=== PATIENT | female | born 1980 | race Caucasian/White ===

== ENCOUNTER 2017-02-12 11:23 | Emergency (ER) | payer MEDICAID ==
[~2017-02-12] VITALS: Ht 162.6 cm; Wt 85.0 kg
[~2017-02-12 11:23] MED LIST: ALBU8.5H3 INH; HYDR-3498 PO; IBUP-1542 PO; PRED20TA PO
[2017-02-12 11:32] VITALS: Ht 162.6 cm; Wt 85.0 kg
[2017-02-12] MEDS ORDERED: KETOROLAC 30 MG INJ IM STA (12:13)
--- NOTE | 2017-02-12 12:36 | ERD ---
ER Documentation Chief Complaint Date/Time DATE: 02/12/17 TIME: 12:33 Chief Complaint Complains of pain to left side and neck after a slip and fall HPI Patient is a 37-year-old female here with daughter who is serving as cardiac specialist who presents to the ED with neck and shoulder and side pain after sustaining an injury today. About an hour ago patient was at a office where she slipped on the wet ground. She states that she fell on her side. She denies hitting her head or passing out or blacking out or losing consciousness. She remembers having that happen. She denies headache or dizziness. Denies chest pain or shortness of breath or difficulty breathing. States that the pain is local her left shoulder and left side of her neck she is able to move her neck however she does have pain with palpation to the left side. Denies numbness or tingling. Has difficulty walking. Denies abdominal pain, nausea, vomiting or diarrhea. ROS All systems reviewed and are negative except as per history of present illness. Medications Home Meds Active Scripts Naproxen* (Naprosyn*) 500 Mg Tablet, 500 MG PO BID Y for PAIN AND/OR INFLAMMATION, #30 TAB Prov:LISA SKINNER PA-C 02/12/17 Ibuprofen* (Motrin*) 600 Mg Tab, 600 MG PO Q6H Y for PAIN AND OR ELEVATED TEMP, #30 TAB Prov:OLGA LIDIA DODD MD 05/06/16 Ibuprofen* (Motrin*) 600 Mg Tab, 600 MG PO Q8 for PAIN, #30 TAB Prov:KARI WHITLOCK MD 10/08/15 Prednisone* (Prednisone*) 20 Mg Tab, 40 MG PO DAILY for 4 Days, TAB Prov:KARI WHITLOCK MD 10/08/15 Albuterol Sulfate* (Proair HFA*) 8.5 Gm Hfa.aer.ad, 2 PUFF INH Q6H Y for COUGH, #1 INHALER Prov:KARI WHITLOCK MD 10/08/15 Hydrocodone Bit-Acetaminophen* ([place]*) 5-325 Mg Tab, 1 TAB PO Q6 Y for PAIN, # 20 TAB Prov:BILLY FERRIS 08/22/15 Allergies Allergies: Coded Allergies: No Known Allergy (Verified , 10/08/15) PMhx/Soc History of Surgery: Yes (cholecystectomy) Anesthesia Reaction: No Hx Neurological Disorder: No Hx Respiratory Disorders: No Hx Cardiac Disorders: No Hx Psychiatric Problems: No Hx Miscellaneous Medical Probl: No Hx Alcohol Use: No Hx Substance Use: No Hx Tobacco Use: No Smoking Status: Never smoker FmHx Family History: No coronary disease, No diabetes, No other Physical Exam Vitals Vital Signs Date Time Temp Pulse Resp B/P Pulse Ox O2 Delivery O2 Flow Rate FiO2 02/12/17 11:32 98.6 87 20 177/89 98 Physical Exam GENERAL: Well-developed, well-nourished female. Appears in no acute distress. NECK: Supple. No lymphadenopathy or thyromegaly. No meningismus. negative kernig. negative brudinski. LUNG: Clear to auscultation bilaterally. No rhonchi, wheezing, rales or coarse breath sounds. HEART: Regular rate and rhythm. No murmurs, rubs or gallops. Extremities: Equal pulses bilaterally. No peripheral clubbing, cyanosis or edema. No unilateral leg swelling. Tenderness to the left anterior and posterior shoulder with no step-offs or deformities. Pain with full extension and flexion. Slight tenderness to the left elbow. No step-offs or deformities. No spinal tenderness. No step-offs or deformities. Tenderness to the left neck. Tenderness to the left hip with no step-offs or deformities. No open wounds or lacerations. NEUROLOGIC: Alert and oriented. Moving all four extremities. 5/5 strength in all extremities. Normal speech. Steady gait. SKIN: Normal color. Warm and dry. No rashes or lesions. Capillary refill < 2 seconds Results 24 hrs Current Medications Medications (Trade) Dose Ordered Sig/Joleen Route PRN Reason Start Time Stop Time Status Last Admin Dose Admin Ketorolac Tromethamine (Toradol) 30 mg ONCE STAT IM 02/12/17 12:13 02/12/17 12:14 DC 02/12/17 12:18 Procedures/MDM ER COURSE: I kept the patient and/or family informed of laboratory and diagnostic imaging results throughout the emergency room course. IMAGING STUDIES [place] [id number] Radiology Main Line: [phone] DIAGNOSTIC IMAGING REPORT Patient: LISSY JONES : 1980 Age: 37 Sex: F MR #: [id number] DOS: 02/12/17 1213 Ordering MD: LISA SKINNER PA-C Location: [facility] Room/Bed: PROCEDURE: XR cervical spine CLINICAL INDICATION: Pain status post fall TECHNIQUE: 3 standard radiographs were obtained of the cervical spine. COMPARISON: None FINDINGS: Alignment: is normal without subluxation. The atlantoaxial relationship appears normal Disk spaces: are well maintained Osseous structures : appear intact with no fracture or destructive process identified. there is no significant spurring. Soft tissues: are unremarkable. IMPRESSION: Unremarkable cervical spine study Physician Shubham Date Time Electronically viewed and signed by Physician Shubham on 02/12/2017 13:51 RH/ CC: LISA SKINNER PA-C [place] [id number] Radiology Main Line: [phone] DIAGNOSTIC IMAGING REPORT Patient: LISSY JONES : 1980 Age: 37 Sex: F MR #: [id number] DOS: 02/12/17 1213 Ordering MD: LISA SKINNER PA-C Location: [facility] Room/Bed: PROCEDURE: XR Left Hip CLINICAL INDICATION: Pain TECHNIQUE: AP and frog-leg views were submitted. COMPARISON: None FINDINGS: Osseous structures: appear well mineralized and intact with no fracture or destructive process identified. Joint spaces: The hip joint is well maintained there is no distension of the joint capsule. Soft tissues: An Essure tubal occlusion device is noted. IMPRESSION: Unremarkable left hip. Physician Shubham Date Time Electronically viewed and signed by Physician Shubham on 02/12/2017 13:50 RH/ CC: LISA SKINNER PA-C [place] [id number] Radiology Main Line: [phone] DIAGNOSTIC IMAGING REPORT Patient: LISSY JONES : 1980 Age: 37 Sex: F MR #: [id number] DOS: 02/12/17 1213 Ordering MD: LISA SKINNER PA-C Location: [facility] Room/Bed: PROCEDURE: XR Shoulder. CLINICAL INDICATION: Fall TECHNIQUE: Three views of the left shoulder are available for review. COMPARISON: None available FINDINGS: The humeral head is located. The AC joint is maintained. There is no acute osseous or articular abnormality. No evidence for fracture. The visualized portions of the left lung are clear. . IMPRESSION: 1. Normal left shoulder x-ray series. 2. No acute fracture or dislocation is seen. RPTAT: EE .Dash Swanson MD, MD Date Time Electronically viewed and signed by .Dash Swanson MD, on 02/12/2017 13:49 .d/ CC: LISA SKINNER PA-C [place] [id number] Radiology Main Line: [phone] DIAGNOSTIC IMAGING REPORT Patient: LISSY JONES : 1980 Age: 37 Sex: F MR #: [id number] DOS: 02/12/17 0000 Ordering MD: LISA SKINNER PA-C Location: [facility] Room/Bed: PROCEDURE: XR Chest AP portable CLINICAL INDICATION: Pain status post fall TECHNIQUE: An AP portable radiograph of the chest was submitted. COMPARISON: 10/08/2015 FINDINGS: Support Hardware: None Cardiovascular: The cardiovascular silhouette appears unremarkable. Lung Benitez: The lung benitez appear clear with no nodule, alveolar infiltrate, or interstitial prominence evident. Pleural Spaces: No pneumothorax or pleural effusion is identified. Osseous Structures: The osseous structures appear intact. Soft Tissues: The soft tissues appear unremarkable. IMPRESSION: Stable and unremarkable portable chest. Physician Shubham Date Time Electronically viewed and signed by Daylin Moreland Physician on 02/12/2017 13:52 RH/ CC: LISA SKINNER PA-C MEDICATIONS Toradol. Tolerated well with no adverse reaction. MEDICAL DECISION MAKING: This is a 37-year-old female who presents with pain after sustaining a fall today. Vital signs were reviewed. Patient is afebrile. Patient is not hypoxic. Patient is not toxic or ill-appearing. X-rays read by radiologist is unremarkable for fracture dislocation. Chest x-ray is within normal limits. Patient likely has muscle strain versus sprain versus contusion. I have low suspicion for fracture dislocation. Low suspicion for dislocation, fracture, epidural abscess, herniation, osteomyelitis, meningitis, neurological deficit. Low suspicion for dislocation, fracture, septic joint, compartment syndrome, osteomyelitis, cellulitis, avascular necrosis, neurological injury, vascular injury, tendon laceration. DISCHARGE: At this time, patient is stable for discharge and outpatient management with no new complaints during the ER course. Patient was sent home with [place] and copy of all imaging report. Patient will be discharged home with instructions to recheck for new or worsening symptoms such as fever, nausea, weakness, LOC and to follow up with primary care in the next 1-2 days. Patient was advised to return to the ER for any new or worsening symptoms. Plan was discussed and patient and/or family understands and agrees. Home instructions were given. Departure Diagnosis: Primary Impression: Fall Encounter type: initial encounter Qualified Code: W19.XXXA - Fall, initial encounter Additional Impression: Neck pain Condition: Stable LISA SKINNER PA-C Feb 12, 2017 12:35
--- NOTE | 2017-02-12 13:50 | RADRPT ---
PROCEDURE: XR Shoulder. CLINICAL INDICATION: Fall TECHNIQUE: Three views of the left shoulder are available for review. COMPARISON: None available FINDINGS: The humeral head is located. The AC joint is maintained. There is no acute osseous or articular abn ormality. No evidence for fracture. The visualized portions of the left lung are clear. . IMPRESSION: 1. Normal left shoulder x-ray series. 2. No acute fracture or dislocation is seen. RPTAT: EE .Dash Swanson MD, Date Time Electronically viewed and signed by .Dash Swanson MD, MD on 02/12/2017 13:49 .d/
--- NOTE | 2017-02-12 13:50 | RADRPT ---
PROCEDURE: XR Left Hip CLINICAL INDICATION: Pain TECHNIQUE: AP and frog-leg views were submitted. COMPARISON: None FINDINGS: Osseous structures: appear well mineralized and intact with no fracture or destructive process iden tified. Joint spaces: The hip joint is well maintained there is no distension of the joint capsule. Soft tissues: An Essure tubal occlusion device is noted. IMPRESSION: Unremarkable left hip. Physician Shubham Date Time Electronically viewed and signed by Daylin Moreland Physician on 02/12/2017 13:50 RH/
--- NOTE | 2017-02-12 13:51 | RADRPT ---
PROCEDURE: XR cervical spine CLINICAL INDICATION: Pain status post fall TECHNIQUE: 3 standard radiographs were obtained of the cervical spine. COMPARISON: None FINDINGS: Alignment: is normal without subluxation. The atlantoaxial relationship appears normal Disk spaces: are well maintained Osseous structures : appear intact with no fracture or destructive process identified. there is no s ignificant spurring. Soft tissues: are unremarkable. IMPRESSION: Unremarkable cervical spine study Physician Shubham Date Time Electronically viewed and signed by Daylin Moreland Physician on 02/12/2017 13:51 RH/
--- NOTE | 2017-02-12 13:52 | RADRPT ---
PROCEDURE: XR Chest AP portable CLINICAL INDICATION: Pain status post fall TECHNIQUE: An AP portable radiograph of the chest was submitted. COMPARISON: 10/08/2015 FINDINGS: Support Hardware: None Cardiovascular: The cardiovascular silhouette appears unremarkable. Lung Noel: The lung noel appear clear with no nodule, alveolar infiltrate, or interstitial promi nence evident. Pleural Spaces: No pneumothorax or pleural effusion is identified. Osseous Structures: The osseous structures appear intact. Soft Tissues: The soft tissues appear unremarkable. IMPRESSION: Stable and unremarkable portable chest. Physician Shubham Date Time Electronically viewed and signed by Daylin Moreland Physician on 02/12/2017 13:52 RH/
[2017-02-12] MEDS ORDERED: NAPR-260 PO (14:08)
[2017-02-12 14:35] VITALS: BP 155/70
--- NOTE | 2017-02-12 15:29 | RADRPT ---
PROCEDURE: XR Elbow. CLINICAL INDICATION: Elbow pain TECHNIQUE: Three views of the left elbow are available for review COMPARISON: None available FINDINGS: There is no acute osseous or articular abnormality. No evidence for fracture. Bone mineral density is preserved. The articular surfaces are smooth without evidence of marginal erosions. The soft tis sues are intact without evidence of calcifications. IMPRESSION: 1. No acute osseous abnormality. RPTAT: EE .Dash Swanson MD, MD Date Time Electronically viewed and signed by .Dash Swanson MD, on 02/12/2017 13:49 .d/
== END 2017-02-12 14:36 | disposition home or self-care (01) ==
LOC: FTE 11:23
DX: S19.9XXA Unspecified injury of neck, initial encounter (principal); R07.9 Chest pain, unspecified; W01.0XXA Fall on same level from slipping, tripping and stumbling without subsequent striking against object, initial encounter; Y92.9 Unspecified place or not applicable
CPT/HCPCS: 71010; 72040; 73030; 73080; 73510; J1885; 96372

== ENCOUNTER 2017-03-18 16:07 | Emergency (ER) | payer MEDICAID ==
[~2017-03-18] VITALS: Ht 162.6 cm; Wt 86.0 kg
[~2017-03-18 16:07] MED LIST changes: +NAPR-260 PO
[2017-03-18 16:17] VITALS: Ht 162.6 cm; Wt 86.0 kg
[2017-03-18] MEDS ORDERED: KETOROLAC 30 MG INJ IV STA (17:57)
[2017-03-18] MEDS ORDERED: SOD CHLORIDE 0.9% 1,000 ML IV STA (17:57)
[2017-03-18] MEDS ORDERED: ONDANSETRON 4 MG INJ IV STA (17:57)
[2017-03-18 18:47] LABS: BASOPHILS % 0.5 % (0.0-2.0); EOSINOPHILS # 0.1 10^3/ul (0.0-0.5); EOSINOPHILS % 2.5 % (0.0-7.0); HEMATOCRIT 38.1 % (37.0-47.0); HEMOGLOBIN 13.2 g/dl (12.0-16.0); LYMPHOCYTES # 1.8 10^3/ul (0.8-2.9); LYMPHOCYTES % 31.7 % (15.0-51.0); MEAN CORPUSCULAR HEMOGLOBIN 30.4 pg (29.0-33.0); MEAN CORPUSCULAR HGB CONC 34.6 g/dl (32.0-37.0); MEAN CORPUSCULAR VOLUME 87.8 fl (82.0-101.0); MEAN PLATELET VOLUME 10.8 fl (7.4-10.4); MONOCYTE # 0.4 10^3/ul (0.3-0.9); MONOCYTES % 6.9 % (0.0-11.0); NEUTROPHIL # 3.3 10^3/ul (1.6-7.5); NEUTROPHILS % 58.2 % (39.0-77.0); PLATELET COUNT 224 10^3/UL (140-415); RED BLOOD COUNT 4.34 10^6/ul (4.20-5.40); RED CELL DISTRIBUTION WIDTH 11.8 % (11.5-14.5); WHITE BLOOD COUNT 5.7 10^3/ul (4.8-10.8)
[2017-03-18 18:51] LABS: ADD UMIC YES; UR ASCORBIC ACID NEGATIVE (NEGATIVE); UR BILIRUBIN (Dip) NEGATIVE (NEGATIVE); UR BLOOD (Dip) 1+ mg/dL (NEGATIVE); UR CLARITY SLIGHTLY CLOUDY (CLEAR); UR COLOR YELLOW (YELLOW); UR GLUCOSE (Dip) NEGATIVE (NEGATIVE); UR KETONES (Dip) NEGATIVE (NEGATIVE); UR LEUKOCYTE ESTERASE (Dip) NEGATIVE Leu/ul (NEGATIVE); UR NITRITE (Dip) NEGATIVE (NEGATIVE); UR RBC 1 /HPF (0-5); UR SPECIFIC GRAVITY (Dip) 1.028 (1.003-1.030); UR TOTAL PROTEIN (Dip) NEGATIVE (NEGATIVE); UR UROBILINOGEN (Dip) NEGATIVE (NEGATIVE)
[2017-03-18 19:07] LABS: INR 0.95; PROTIME 12.7 Sec (12.2-14.2)
[2017-03-18 19:08] LABS: PARTIAL THROMBOPLASTIN TIME 25.3 Sec (25.0-35.0)
[2017-03-18 19:14] LABS: ALBUMIN 4.5 g/dl (3.3-4.9); BILIRUBIN,INDIRECT 0.6 mg/dl (0-1.1); BILIRUBIN,TOTAL 0.6 mg/dl (0.2-1.3); CREATININE 0.68 mg/dl (0.44-1.00); POTASSIUM 4.2 mmol/L (3.5-5.1); TOTAL PROTEIN 7.9 g/dl (6.1-8.1)
[2017-03-18 19:15] LABS: ALBUMIN/GLOBULIN RATIO 1.32
--- NOTE | 2017-03-18 19:32 | RADRPT ---
PROCEDURE: CT Abdomen and Pelvis without contrast. CLINICAL INDICATION: Abdominal pain TECHNIQUE: CT scan of the abdomen and pelvis without contrast was performed. The patient was scann ed without intravenous contrast. Coronal and sagittal reformatted images were obtained from the axi al source images. Use of iterative reconstruction technique was employed. Images were reviewed on a high-resolution PACS workstation. images. The calculated radiation dose measures 899.48 mGy centimet ers. The CTDI measures 15.64 mGy. One or more of the following dose reduction techniques were used: - Automated exposure control. - Adjustment of the mA and/or kV according to patient size . - Use of iterative reconstruction technique. Images were reviewed on a high-resolution PACS workstation COMPARISON: 06/03/2015 FINDINGS: CT abdomen: The lung bases are clear. The heart size is normal, without pericardial thickening or effusion. Th e liver is mildly enlarged and decreased increased density without focal mass or intrahepatic biliar y dilatation. The spleen is normal in size and homogeneous in density. The stomach is partially co llapsed, but is grossly unremarkable. The pancreas as visualized is normal. The gallbladder is alisha gically absent. The biliary tree is otherwise unremarkable and there is no evidence for biliary di latation. The adrenal glands are symmetric and normal. There is a 2 mm calculus at the left lower p ole of the kidney. No evidence for hydroureternephrosis in either kidney per The aorta is of normal caliber. There is no retroperitoneal lymphadenopathy. The john hepatis nahum on is clear. There is a small hernia just above the umbilicus measuring 2 x 1.3 cm. It contains mes enteric fat only, with a similar appearance as on the prior study. The bowel and mesentery, as visua lized, are equally unremarkable. CT pelvis: The small bowel loops situated within the pelvis are unremarkable. 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 The pelvic sidewalls and inguinal regions are clear. The sigmoid colon and rectum are not thickened or dilated. Sigmoid diverticulosis is present. Normal unenhanced appearance of t he appendix.. No mass, lymphadenopathy, or free fluid is seen. No acute inflammation is seen. The surrounding osseous structures are remarkable for degenerative enthesopathy of the spine. No os teolytic or osteoblastic lesion is detected. IMPRESSION: 1. No acute inflammatory process seen within the abdomen or pelvis on this noncontrast examination. 2. Hepatic steatosis. 3. Status post cholecystectomy. 4. Small supraumbilical hernia containing mesenteric fat, unchanged. 5. 2 mm nonobstructing calculus at the left lower renal pole. RPTAT: RR .Dash Swanson MD, Date Time Electronically viewed and signed by .Dash Swanson MD, MD on 03/18/2017 19:32 .d/
--- NOTE | 2017-03-18 19:44 | ERD ---
ER Documentation Chief Complaint Date/Time DATE: 03/18/17 TIME: 19:38 Chief Complaint ABD PAIN SINCE WEDNESDAY WITH NAUSEA /DIARRHEA HPI This patient is a 37-year-old female presenting to the emergency department with complaints of abdominal pain diffusely ongoing intermittently for the past 5 days. The pain is worse to the lower quadrants bilaterally. She also noted one episode of blood in her stool which was mild. Associated symptoms include nausea, vomiting, and diarrhea but these have currently resolved. Symptoms are mild in severity. The patient is taken no medication for relief of symptoms. She denies aggravating factors. No fevers, chills, or other symptoms reported. ROS All systems reviewed and are negative except as per history of present illness. Medications Home Meds Active Scripts Ondansetron (Ondansetron Odt) 4 Mg Tab.rapdis, 4 MG PO Q6H Y for NAUSEA AND/OR VOMITING, #10 TAB Prov:DEVONTE NOLAN PA-C 03/18/17 Naproxen* (Naprosyn*) 500 Mg Tablet, 500 MG PO BID Y for PAIN AND/OR INFLAMMATION, #30 TAB Prov:DEVONTE NOLAN PA-C 03/18/17 Naproxen* (Naprosyn*) 500 Mg Tablet, 500 MG PO BID Y for PAIN AND/OR INFLAMMATION, #30 TAB Prov:LISA SKINNER PA-C 02/12/17 Ibuprofen* (Motrin*) 600 Mg Tab, 600 MG PO Q6H Y for PAIN AND OR ELEVATED TEMP, #30 TAB Prov:OLGA LIDIA DODD MD 05/06/16 Ibuprofen* (Motrin*) 600 Mg Tab, 600 MG PO Q8 for PAIN, #30 TAB Prov:KARI WHITLOCK MD 10/08/15 Prednisone* (Prednisone*) 20 Mg Tab, 40 MG PO DAILY for 4 Days, TAB Prov:KARI WHITLOCK MD 10/08/15 Albuterol Sulfate* (Proair HFA*) 8.5 Gm Hfa.aer.ad, 2 PUFF INH Q6H Y for COUGH, #1 INHALER Prov:KARI WHITLOCK MD 10/08/15 Hydrocodone Bit-Acetaminophen* ([place]*) 5-325 Mg Tab, 1 TAB PO Q6 Y for PAIN, # 20 TAB Prov:BILLY FERRIS 08/22/15 Allergies Allergies: Coded Allergies: No Known Allergy (Verified , 03/18/17) PMhx/Soc History of Surgery: Yes (cholecystectomy) Anesthesia Reaction: No Hx Neurological Disorder: No Hx Respiratory Disorders: No Hx Cardiac Disorders: No Hx Psychiatric Problems: No Hx Miscellaneous Medical Probl: No Hx Alcohol Use: Yes Hx Substance Use: No Hx Tobacco Use: No Smoking Status: Never smoker Physical Exam Vitals Vital Signs Date Time Temp Pulse Resp B/P Pulse Ox O2 Delivery O2 Flow Rate FiO2 03/18/17 16:17 98.6 84 18 150/72 99 Physical Exam Const: Nontoxic, well-appearing female in no acute distress. Head: Atraumatic Eyes: Normal Conjunctiva ENT: Normal External Ears, Nose and Mouth. Neck: Full range of motion..~ No meningismus. Resp: Clear to auscultation bilaterally Cardio: Regular rate and rhythm, no murmurs Abd: Soft, mild tenderness to palpation bilaterally to the lower quadrants but no rebound tenderness or guarding, non distended. Normal bowel sounds Skin: No petechiae or rashes Back: No midline or flank tenderness Ext: No cyanosis, or edema Neur: Awake and alert Psych: Normal Mood and Affect Result Diagram: 03/18/17 1830 03/18/17 1830 Results 24 hrs Laboratory Tests Test 03/18/17 18:30 White Blood Count 5.710^3/ul Red Blood Count 4.3410^6/ul Hemoglobin 13.2g/dl Hematocrit 38.1% Mean Corpuscular Volume 87.8fl Mean Corpuscular Hemoglobin 30.4pg Mean Corpuscular Hemoglobin Concent 34.6g/dl Red Cell Distribution Width 11.8% Platelet Count 83035^3/UL Mean Platelet Volume 10.8fl Neutrophils % 58.2% Lymphocytes % 31.7% Monocytes % 6.9% Eosinophils % 2.5% Basophils % 0.5% Nucleated Red Blood Cells % 0.0/100WBC Neutrophils # 3.310^3/ul Lymphocytes # 1.810^3/ul Monocytes # 0.410^3/ul Eosinophils # 0.110^3/ul Basophils # 0.010^3/ul Nucleated Red Blood Cells # 0.010^3/ul Prothrombin Time 12.7Sec Prothrombin Time Ratio 1.0 INR International Normalized Ratio 0.95 Activated Partial Thromboplast Time 25.3Sec Urine Color YELLOW Urine Clarity SLIGHTLY CLOUDY Urine pH 5.0 Urine Specific [place] 1.028 Urine Ketones NEGATIVEmg/dL Urine Nitrite NEGATIVEmg/dL Urine Bilirubin NEGATIVEmg/dL Urine Urobilinogen NEGATIVEmg/dL Urine Leukocyte Esterase NEGATIVELeu/ul Urine Microscopic RBC 1/HPF Urine Microscopic WBC 0/HPF Urine Hemoglobin 1+mg/dL Urine Glucose NEGATIVEmg/dL Urine Total Protein NEGATIVEmg/dl Sodium Level 144mmol/L Potassium Level 4.2mmol/L Chloride Level 106mmol/L Carbon Dioxide Level 23mmol/L Anion Gap 19 Blood Urea Nitrogen 15mg/dl Creatinine 0.68mg/dl Glucose Level 94mg/dl Calcium Level 9.0mg/dl Total Bilirubin 0.6mg/dl Direct Bilirubin 0.00mg/dl Indirect Bilirubin 0.6mg/dl Aspartate Amino Transf (AST/SGOT) 24IU/L Alanine Aminotransferase (ALT/SGPT) 40IU/L Alkaline Phosphatase 53IU/L Total Protein 7.9g/dl Albumin 4.5g/dl Globulin 3.40g/dl Albumin/Globulin Ratio 1.32 Lipase 132U/L Current Medications Medications (Trade) Dose Ordered Sig/Joleen Route PRN Reason Start Time Stop Time Status Last Admin Dose Admin Sodium Chloride (NS) 1,000 ml @ 1,000 mls/hr Q1H STAT IV 03/18/17 17:57 03/18/17 18:56 DC 03/18/17 18:31 Ondansetron HCl (Zofran Inj) 4 mg ONCE STAT IV 03/18/17 17:57 03/18/17 18:00 DC 03/18/17 18:31 Ketorolac Tromethamine (Toradol) 30 mg ONCE STAT IV 03/18/17 17:57 03/18/17 18:00 DC 03/18/17 18:32 Procedures/MDM EMERGENCY DEPARTMENT COURSE / MEDICAL DECISION MAKING: This is a 37-year-old female who comes to the emergency room secondary to complaints of abdominal pain. The patient was given IV fluids, IV Zofran, IV Toradol in the department. On re- evaluation, the patient was feeling improved. Lab results reviewed. CBC: Within normal limits Chemistry: Within normal limits UA: No signs of proteinuria, hematuria, or infection. Lipase: Within normal limits. Radiology: [facility] [id number] [place], [place] [address] Radiology Main Line: [phone] DIAGNOSTIC IMAGING REPORT Patient: LISSY JONES : 1980 Age: 37 Sex: F MR #: [id number] DOS: 03/18/17 1757 Ordering MD: DEVONTE NOLAN PA-C Location: [facility] Room/Bed: PROCEDURE: CT Abdomen and Pelvis without contrast. CLINICAL INDICATION: Abdominal pain TECHNIQUE: CT scan of the abdomen and pelvis without contrast was performed. The patient was scanned without intravenous contrast. Coronal and sagittal reformatted images were obtained from the axial source images. Use of iterative reconstruction technique was employed. Images were reviewed on a high- resolution PACS workstation. images. The calculated radiation dose measures 899.48 mGy centimeters. The CTDI measures 15.64 mGy. One or more of the following dose reduction techniques were used: - Automated exposure control. - Adjustment of the mA and/or kV according to patient size . - Use of iterative reconstruction technique. Images were reviewed on a high-resolution PACS workstation COMPARISON: 06/03/2015 FINDINGS: CT abdomen: The lung bases are clear. The heart size is normal, without pericardial thickening or effusion. The liver is mildly enlarged and decreased increased density without focal mass or intrahepatic biliary dilatation. The spleen is normal in size and homogeneous in density. The stomach is partially collapsed, but is grossly unremarkable. The pancreas as visualized is normal. The gallbladder is surgically absent. The biliary tree is otherwise unremarkable and there is no evidence for biliary dilatation. The adrenal glands are symmetric and normal. There is a 2 mm calculus at the left lower pole of the kidney. No evidence for hydroureternephrosis in either kidney per The aorta is of normal caliber. There is no retroperitoneal lymphadenopathy. The john hepatis region is clear. There is a small hernia just above the umbilicus measuring 2 x 1.3 cm. It contains mesenteric fat only, with a similar appearance as on the prior study. The bowel and mesentery, as visualized , are equally unremarkable. CT pelvis: The small bowel loops situated within the pelvis are unremarkable. Bilateral Essure occlusion devices are present. The pelvic sidewalls and inguinal regions are clear. The sigmoid colon and rectum are not thickened or dilated. Sigmoid diverticulosis is present. Normal unenhanced appearance of the appendix.. No mass, lymphadenopathy, or free fluid is seen. No acute inflammation is seen. The surrounding osseous structures are remarkable for degenerative enthesopathy of the spine. No osteolytic or osteoblastic lesion is detected. IMPRESSION: 1. No acute inflammatory process seen within the abdomen or pelvis on this noncontrast examination. 2. Hepatic steatosis. 3. Status post cholecystectomy. 4. Small supraumbilical hernia containing mesenteric fat, unchanged. 5. 2 mm nonobstructing calculus at the left lower renal pole. RPTAT: RR .Dash Swanson MD, MD Date Time Electronically viewed and signed by .Dash Swanson MD, MD on 03/18/2017 19:32 .d/ CC: DEVONTE NOLAN PA-C The primary diagnosis is abdominal pain. Secondary diagnosis is nephrolithiasis I have low suspicion for appendicitis, bowel obstruction, mesenteric ischemia, sepsis, or other emergent conditions at this time. Discharge: I have discussed the lab results and diagnostic findings with the patient and answered any questions or concerns. The patient was discharged with a prescription for naproxen and Zofran. The patient was advised to followup with their PMD in 1-2 days and to return to the Emergency Department if there are any new or worsening symptoms. The patient understood and agreed with the diagnosis, treatment and plan. The patient is stable for discharge at this time. Departure Diagnosis: Primary Impression: Abdominal pain Additional Impression: Nephrolithiasis Condition: Fair Patient Instructions: Abdominal Pain, Kidney Stone, Undescended (No Symptoms) Referrals: [facility] Additional Instructions: No mas mejor en 2-3 vazquez, regresar. Mas peor en 24 horas, regresear rapidamente. Ir a doctor primario in 5-7 vazquez. Usar instrucciones cuando arturo medicamento. DEVONTE NOLAN PA-C Mar 18, 2017 19:44
[2017-03-18] MEDS ORDERED: ONDA4TAB14 PO (19:52)
[2017-03-18] MEDS ORDERED: NAPR-260 PO (19:52)
[2017-03-18 20:07] VITALS: BP 132/78; PULSE 60; RESP 16; TEMP 98.4
== END 2017-03-18 20:08 | disposition home or self-care (01) ==
LOC: FTE 16:07
DX: R10.84 Generalized abdominal pain (principal); N20.0 Calculus of kidney
CPT/HCPCS: 36415; 74176; 80053; 81001; 83690; 85025; 85610; 85730; 96374; 96375; J1885; J2405; J7030; Z7502

== ENCOUNTER 2017-09-28 16:31 | Emergency (ER) | END 2017-09-28 18:21 | disposition home or self-care (01) ==

== ENCOUNTER 2018-08-26 01:33 | Emergency (ER) | payer MEDICAID ==
[~2018-08-26] VITALS: Wt 87.5 kg
[~2018-08-26 01:33] MED LIST changes: +ACET325T33 PO; -ALBU8.5H3 INH; +ALBU8.5H8 INH; +AMOX1TAB10 PO; +CIPR7.5D RIGHT EAR; +IBUP800T48 PO; -NAPR-260 PO; +NAPR-985 PO; +ONDA4TAB14 PO; +ONDA4TAB8 PO; +OSEL75CA23 PO
[2018-08-26] MEDS ORDERED: IPRATROPIUM (NEB) 0.5 MG/2.5 ML AMP NEB STA (03:40)
[2018-08-26] MEDS ORDERED: ALBUTEROL 0.5% (NEB) 2.5 MG/0.5 ML AMP NEB STA (03:40)
[2018-08-26] MEDS ORDERED: predniSONE 20 MG TAB PO STA (03:40)
[2018-08-26] MEDS ORDERED: PRED20TA PO (05:27)
[2018-08-26] MEDS ORDERED: FLUT9.9S NASAL (05:27)
[2018-08-26] MEDS ORDERED: ALBU18HF INHALATION (05:27)
--- NOTE | 2018-08-26 05:31 | ERD ---
ER Documentation Chief Complaint Chief Complaint cough/runny nose/chest congestion x 2 days HPI 38-year-old female patient with no significant past medical history presents to the ED complaining of nasal congestion, headache, cough, wheezing that started a few days ago. Patient reports that she has not tried taking medications. Denies any fever, chills, nausea, vomiting, diarrhea, neck stiffness, chest pain. Patient denies any recent traveling. ROS All systems reviewed and are negative except as per history of present illness. Medications Home Meds Active Scripts Prednisone* (Prednisone*) 20 Mg Tab, 40 MG PO DAILY for 4 Days, TAB Prov:LACEY CARRASQUILLO PA-C 08/26/18 Albuterol Sulfate* (Ventolin HFA*) 18 Gm Hfa.aer.ad, 2 PUFF INHALATION Q4H, #1 INHALER Prov:LACEY CARRASQUILLO PA-C 08/26/18 Fluticasone Propionate (Flonase Allergy Relief) 9.9 Ml [place].susp, 1 SPRAY NASAL DAILY, #1 BOTTLE TO EACH NOSTRIL Prov:LACEY CARRASQUILLO PA-C 08/26/18 Ondansetron Hcl* (Zofran*) 4 Mg Tablet, 4 MG PO Q8H PRN for NAUSEA AND/OR VOMITING, #30 TAB Prov:KALA GREGORY 09/28/17 Oseltamivir Phosphate* (Tamiflu*) 75 Mg Capsule, 75 MG PO BID for 5 Days, CAP Prov:KALA GREGORY 09/28/17 Acetaminophen* (Tylenol*) 325 Mg Tablet, 2 TAB PO Q6 PRN for PAIN AND OR ELEVATED TEMP, #20 TAB Prov:KALA GREGORY 09/28/17 Ibuprofen* (Motrin*) 800 Mg Tab, 800 MG PO Q6H PRN for PAIN AND OR ELEVATED TEMP, #30 TAB Prov:KALA GREGORY 09/28/17 Amoxicillin/Potassium Clav (Amox-Clav 875-125 mg Tablet) 875-125 mg Tab, 1 TAB PO BID for 10 Days, #20 TAB Prov:KALA GREGORY 09/28/17 Ciprofloxacin Hcl/Dexameth (Ciprodex Otic Suspension) 7.5 Ml Drops.susp, 4 DROP RIGHT EAR BID for 7 Days, EA Prov:KALA GREGORY 09/28/17 Ondansetron (Ondansetron Odt) 4 Mg Tab.rapdis, 4 MG PO Q6H PRN for NAUSEA AND/OR VOMITING, #10 TAB Prov:DEVONTE NOLAN PA-C 03/18/17 Naproxen* (Naprosyn*) 500 Mg Tablet, 500 MG PO BID PRN for PAIN AND/OR INFLAMMATION, #30 TAB Prov:DEVONTE NOLAN PA-C 03/18/17 Naproxen* (Naprosyn*) 500 Mg Tablet, 500 MG PO BID PRN for PAIN AND/OR INFLAMMATION, #30 TAB Prov:LISA SKINNER PA-C 02/12/17 Ibuprofen* (Motrin*) 600 Mg Tab, 600 MG PO Q6H PRN for PAIN AND OR ELEVATED TEMP, #30 TAB Prov:OLGA LIDIA DODD MD 05/06/16 Ibuprofen* (Motrin*) 600 Mg Tab, 600 MG PO Q8 for PAIN, #30 TAB Prov:KARI WHITLOCK MD 10/08/15 Prednisone* (Prednisone*) 20 Mg Tab, 40 MG PO DAILY for 4 Days, TAB Prov:KARI WHITLOCK MD 10/08/15 Albuterol Sulfate* (Proair HFA*) 8.5 Gm Hfa.aer.ad, 2 PUFF INH Q6H PRN for COUGH, #1 INHALER Prov:KARI WHITLOCK MD 10/08/15 Hydrocodone Bit-Acetaminophen* ([place]*) 5-325 Mg Tab, 1 TAB PO Q6 PRN for PAIN, #20 TAB Prov:BILLY FERRIS MD 08/22/15 Allergies Allergies: Coded Allergies: No Known Allergy (Verified , 03/18/17) PMhx/Soc Medical and Surgical Hx: pt denies Medical Hx History of Surgery: Yes (cholecystectomy) Anesthesia Reaction: No Hx Neurological Disorder: No Hx Respiratory Disorders: No Hx Cardiac Disorders: No Hx Psychiatric Problems: No Hx Miscellaneous Medical Probl: No Hx Alcohol Use: Yes (SOMETIMES) Hx Substance Use: No Hx Tobacco Use: No Smoking Status: Never smoker FmHx Family History: No diabetes, No coronary disease Physical Exam Vitals Vital Signs Date Temp Pulse Resp B/P (MAP) Pulse Ox O2 O2 Flow FiO2 Time Delivery Rate 08/26/18 80 20 99 21 04:01 08/26/18 97.9 95 18 160/77 99 01:35 (104) Physical Exam Const: Zka-opl-xsohonoel, well-nourished. In no acute distress. Head: Atraumatic, normocephalic Eyes: Normal Conjunctiva without injection. No purulent discharge. PERRL. EOMI ENT: Normal external ear. Ear canal without erythema. Tympanic membrane pearly fan without effusion or bulging. Nasal canal clear with normal turbinates. Moist oropharynx without tonsillar exudates. Non-erythematous pharynx. Uvula midline. No drooling. No trismus. Neck: Full range of motion. No meningismus. No cervical lymphadenopathy. Resp: Inspiratory and expiratory wheezing noted. No rhonchi, rales, or crackles. No accessory muscle use. No retractions. Cardio: Regular rate and rhythm. No murmurs, rubs or gallops. Abd: Soft, non tender, non distended. Normal bowel sounds. No palpable masses. No rebound tenderness. No guarding. Skin: No petechiae or rashes Back: No midline tenderness. No CVA tenderness. Ext: No cyanosis, or edema. Neur: Awake and alert. Psych: Normal Mood and Affect Results 24 hrs Laboratory Tests Test 08/26/18 03:54 08/26/18 04:02 Bedside Urine pH (LAB) 5.5 Bedside Urine Protein (LAB) 1+ Bedside Urine Glucose (UA) Negative Bedside Urine Ketones (LAB) Negative Bedside Urine Blood 3+ Bedside Urine Nitrite (LAB) Negative Bedside Urine Leukocyte Esterase (L Negative POC Beta HCG, Qualitative NEGATIVE Current Medications Medications Dose Sig/Joleen Start Time Status Last (Trade) Ordered Route PRN Stop Time Admin Dose Reason Admin Albuterol 10 mg ONCE STAT 08/26/18 DC 08/26/18 (Proventil NEB 03:40 08/26/18 04:01 0.5% (Neb)) 03:41 Ipratropium 1 mg ONCE STAT 08/26/18 DC 08/26/18 [place] NEB 03:40 08/26/18 04:01 (Atrovent 03:41 0.02% (Neb)) Prednisone 60 mg ONCE STAT 08/26/18 DC 08/26/18 (Prednisone) PO 03:40 08/26/18 03:53 03:41 Procedures/MDM 38-year-old female patient with no significant past medical history presents to ED complaining of nasal congestion, headache, wheezing, cough. Patient is afebrile and nontoxic-appearing. Blood pressure is 160/77. Blood Pressure Assessment: Patient's blood pressure was elevated (>120/80) but appears stable without evidence of hypertension emergency or urgency. The patient was counseled about the risks of hypertension and urged to pursue outpatient monitoring and therapy within a week with their primary care physician. Patient was given a breathing treatment consisting of 10 mg albuterol, 1 mg Atrovent, prednisone 60 mg here in the ED with improvement of her symptoms. Chest x-ray shows no evidence of pneumonia, pneumothorax, pleural effusion. This patient presents to the ED with symptoms consistent with a viral acute upper respiratory infection with wheezing. Patient's physical exam include lungs which were clear to auscultation and a normal pulse oximetry. There is a low suspicion for pneumonia, pneumothorax, mononucleosis, pulmonary embolism, epiglottitis, otitis media, otitis externa, viral/strep pharyngitis, sinusitis, myocarditis, pericarditis, endocarditis, peritonsillar abscess, mastoiditis, retropharyngeal abscess, meningitis, sepsis, acute abdomen or other emergent conditions. Fluids, rest, and symptomatic treatment are recommended for the management of patient's symptoms. Diagnosis: Cough, Nasal congestion, wheezing Discharge medications: Prednisone, Flonase, Ventolin Patient was instructed to return to the ED for any new or worsening symptoms. They should otherwise follow up with the primary care provider within 2-3 days. The patient's questions were answered at the time of discharge. Patient under stood and agreed with discharge management. Departure Diagnosis: Primary Impression: Cough Additional Impressions: Nasal congestion Wheezing Condition: Stable Patient Instructions: Uri, Viral W/ Wheezing (Adult) Referrals: COMMUNITY CLINICS YOU HAVE RECEIVED A MEDICAL SCREENING EXAM AND THE RESULTS INDICATE THAT YOU DO NOT HAVE A CONDITION THAT REQUIRES URGENT TREATMENT IN THE EMERGENCY DEPARTMENT. FURTHER EVALUATION AND TREATMENT OF YOUR CONDITION CAN WAIT UNTIL YOU ARE SEEN IN YOUR DOCTORS OFFICE WITHIN THE NEXT 1-2 DAYS. IT IS YOUR RESPONSIBILITY TO MAKE AN APPOINTMENT FOR FOLOW-UP CARE. IF YOU HAVE A PRIMARY DOCTOR --you should call your primary doctor and schedule an appointment IF YOU DO NOT HAVE A PRIMARY DOCTOR YOU CAN CALL OUR PHYSICIAN REFERRAL HOTLINE AT IF YOU CAN NOT AFFORD TO SEE A PHYSICIAN YOU CAN CHOSE FROM THE FOLLOWING [facility] [address] [facility] [address] [facility] [address] [facility] [address] [facility]. [facility] [address] [facility]. [facility]. [address] [facility] Additional Instructions: Llame al doctor MAANA y audrey yung TOM PARA DENTRO DE 2-3 STONE.Dgale a la secretaria que nosotros le instruimos hacer esta tom.Avise o llame si mallory condicin se empeora antes de la tom. Regresa aqui si peor o no mejor. LACEY CARRASQUILLO PA-C Aug 26, 2018 05:31
[2018-08-26 05:40] VITALS: BP 127/71; PULSE 92; RESP 18
== END 2018-08-26 05:41 | disposition home or self-care (01) ==
LOC: FTE 01:33
DX: R05 Cough (principal); R09.81 Nasal congestion; R06.2 Wheezing
CPT/HCPCS: 71045; 81003; 81025; 94644; J7512; Z7610

== ENCOUNTER 2019-03-31 17:38 | Emergency (ER) | payer MEDICAID ==
[~2019-03-31] VITALS: Ht 157.5 cm; Wt 86.0 kg
[~2019-03-31 17:38] MED LIST changes: +ALBU18HF INHALATION; +FLUT9.9S NASAL
[2019-03-31 17:48] VITALS: Ht 157.5 cm; Wt 86.0 kg
--- NOTE | 2019-03-31 18:32 | ERD ---
ER Documentation Chief Complaint Chief Complaint chapman since wednesday. no other complaints. HPI Patient is a 39 years old female with no known past medical history presenting to the ED for right ear pain that is radiating to the right frontal side since Wednesday. She admits to taking jelz-lue-[id number] Advil and Tylenol with resolution of pain, however pain comes back after a few hours. Describes her pain is constant and stabbing. Patient denies fever, chills, night sweats, visual impairment, body weakness. ROS All systems reviewed and are negative except as per history of present illness. Medications Home Meds Active Scripts Amoxicillin/Potassium Clav (Amox-Clav 875-125 mg Tablet) 875-125 mg Tab, 1 TAB PO BID for 10 Days, #20 TAB Prov:JAYA DECKER PA-C 03/31/19 Prednisone* (Prednisone*) 20 Mg Tab, 40 MG PO DAILY for 4 Days, TAB Prov:LACEY CARRASQUILLO PA-C 08/26/18 Albuterol Sulfate* (Ventolin HFA*) 18 Gm Hfa.aer.ad, 2 PUFF INHALATION Q4H, #1 INHALER Prov:LACEY CARRASQUILLO PA-C 08/26/18 Fluticasone Propionate (Flonase Allergy Relief) 9.9 Ml Castell.susp, 1 SPRAY NASAL DAILY, #1 BOTTLE TO EACH NOSTRIL Prov:LACEY CARRASQUILLO PA-C 08/26/18 Ondansetron Hcl* (Zofran*) 4 Mg Tablet, 4 MG PO Q8H PRN for NAUSEA AND/OR VOMITING, #30 TAB Prov:KALA GREGORY 09/28/17 Oseltamivir Phosphate* (Tamiflu*) 75 Mg Capsule, 75 MG PO BID for 5 Days, CAP Prov:PASKALA HUSSEIN 09/28/17 Acetaminophen* (Tylenol*) 325 Mg Tablet, 2 TAB PO Q6 PRN for PAIN AND OR ELEVATED TEMP, #20 TAB Prov:KALA GREGORY 09/28/17 Ibuprofen* (Motrin*) 800 Mg Tab, 800 MG PO Q6H PRN for PAIN AND OR ELEVATED TEMP, #30 TAB Prov:KALA GREGORY 09/28/17 Amoxicillin/Potassium Clav (Amox-Clav 875-125 mg Tablet) 875-125 mg Tab, 1 TAB PO BID for 10 Days, #20 TAB Prov:KALA GREGORY 09/28/17 Ciprofloxacin Hcl/Dexameth (Ciprodex Otic Suspension) 7.5 Ml Drops.susp, 4 DROP RIGHT EAR BID for 7 Days, EA Prov:KALA GREGORY 09/28/17 Ondansetron (Ondansetron Odt) 4 Mg Tab.rapdis, 4 MG PO Q6H PRN for NAUSEA AND/OR VOMITING, #10 TAB Prov:DEVONTE NOLAN PA-C 03/18/17 Naproxen* (Naprosyn*) 500 Mg Tablet, 500 MG PO BID PRN for PAIN AND/OR INFLAMMATION, #30 TAB Prov:DEVONTE NOLAN PA-C 03/18/17 Naproxen* (Naprosyn*) 500 Mg Tablet, 500 MG PO BID PRN for PAIN AND/OR INFLAMMATION, #30 TAB Prov:LISA SKINNER PA-C 02/12/17 Ibuprofen* (Motrin*) 600 Mg Tab, 600 MG PO Q6H PRN for PAIN AND OR ELEVATED TEMP, #30 TAB Prov:OLGAL IDIA DODD MD 05/06/16 Ibuprofen* (Motrin*) 600 Mg Tab, 600 MG PO Q8 for PAIN, #30 TAB Prov:KARI WHITLOCK MD 10/08/15 Prednisone* (Prednisone*) 20 Mg Tab, 40 MG PO DAILY for 4 Days, TAB Prov:KARI WHITLOCK MD 10/08/15 Albuterol Sulfate* (Proair HFA*) 8.5 Gm Hfa.aer.ad, 2 PUFF INH Q6H PRN for COUGH, #1 INHALER Prov:KARI WHITLOCK MD 10/08/15 Hydrocodone Bit-Acetaminophen* (Kerkhoven*) 5-325 Mg Tab, 1 TAB PO Q6 PRN for PAIN, #20 TAB Prov:BILLY FERRIS MD 08/22/15 Allergies Allergies: Coded Allergies: No Known Allergy (Verified , 03/18/17) PMhx/Soc History of Surgery: Yes (cholecystectomy) Anesthesia Reaction: No Hx Neurological Disorder: No Hx Respiratory Disorders: No Hx Cardiac Disorders: No Hx Psychiatric Problems: No Hx Miscellaneous Medical Probl: No Hx Alcohol Use: Yes (SOMETIMES) Hx Substance Use: No Hx Tobacco Use: No Smoking Status: Never smoker FmHx Family History: No diabetes, No coronary disease, No other Physical Exam Vitals Vital Signs Date Temp Pulse Resp B/P (MAP) Pulse Ox O2 O2 Flow FiO2 Time Delivery Rate 03/31/19 98.3 87 18 151/67 98 17:48 (95) Physical Exam Const: No acute distress Head: Atraumatic Eyes: Normal Conjunctiva ENT: Normal External Ears, Nose and Mouth. Right tympanic membrane erythematous without discharge or perforation noted. No mastoid tenderness. Neck: Full range of motion. No meningismus. Resp: Clear to auscultation bilaterally Cardio: Regular rate and rhythm, no murmurs Psych: Normal Mood and Affect Procedures/MDM Patient was seen and evaluated for right ear pain. Patient's clinical symptoms most likely indicates right otitis media without complication. She is stable ready for discharge. Follow-up with PCP. Patient will be discharged with Augmentin and was advised to continue taking Advil for pain. Departure Diagnosis: Primary Impression: Otitis media of right ear Otitis media type: suppurative Chronicity: acute Recurrence: non-recu rrent Spontaneous tympanic membrane rupture: without spontaneous rupture Qualified Codes: H66.001 - Acute suppurative otitis media without spontaneous rupture of ear drum, right ear Condition: Stable Patient Instructions: Otitis Media, Abx Tx (Adult) Referrals: [facility] YOU HAVE RECEIVED A MEDICAL SCREENING EXAM AND THE RESULTS INDICATE THAT YOU DO NOT HAVE A CONDITION THAT REQUIRES URGENT TREATMENT IN THE EMERGENCY DEPARTMENT. FURTHER EVALUATION AND TREATMENT OF YOUR CONDITION CAN WAIT UNTIL YOU ARE SEEN IN YOUR DOCTORS OFFICE WITHIN THE NEXT 1-2 DAYS. IT IS YOUR RESPONSIBILITY TO MAKE AN APPOINTMENT FOR FOLOW-UP CARE. IF YOU HAVE A PRIMARY DOCTOR --you should call your primary doctor and schedule an appointment IF YOU DO NOT HAVE A PRIMARY DOCTOR YOU CAN CALL OUR PHYSICIAN REFERRAL HOTLINE AT IF YOU CAN NOT AFFORD TO SEE A PHYSICIAN YOU CAN CHOSE FROM THE FO[facility]ING [facility] [address]. [facility] [address] [facility]. [facility] [address] [facility] [address] [facility]. [facility] [address] [facility]. [facility]. [address] [facility]. [facility] YOU HAVE RECEIVED A MEDICAL SCREENING EXAM AND THE RESULTS INDICATE THAT YOU DO NOT HAVE A CONDITION THAT REQUIRES URGENT TREATMENT IN THE EMERGENCY DEPARTMENT. FURTHER EVALUATION AND TREATMENT OF YOUR CONDITION CAN WAIT UNTIL YOU ARE SEEN IN YOUR DOCTORS OFFICE WITHIN THE NEXT 1-2 DAYS. IT IS YOUR RESPONSIBILITY TO MAKE AN APPOINTMENT FOR FOLOW-UP CARE. IF YOU HAVE A PRIMARY DOCTOR --you should call your primary doctor and schedule and appointment IF YOU DO NOT HAVE A PRIMARY DOCTOR YOU CAN CALL OUR PHYSICIAN REFERRAL HOTLINE AT . IF YOU CAN NOT AFFORD TO SEE A PHYSICIAN YOU CAN CHOSE FROM THE FOLLOWING [facility] INSTITUTIONS: [address] [place] [address] Additional Instructions: Paciente aconseja volver a Departamento de urgencias inmediatamente para sntomas nuevos o que empeoran . Paciente aconseja posteriores con el PCP en 2-3 ko . Paciente verbaliza la comprehensin y est de acuerdo con el tratamiento y el curso de accin. Si el paciente no tiene ninguna de atencin primaria pueden seguir con [facility] [id number] [place] [address] [address] JAYA DECKER PA-C Mar 31, 2019 18:32
[2019-03-31 18:40] VITALS: BP 119/70; PULSE 72; RESP 18
== END 2019-03-31 18:41 | disposition home or self-care (01) ==
LOC: FTE 17:38
DX: H66.001 Acute suppurative otitis media without spontaneous rupture of ear drum, right ear (principal)
CPT/HCPCS: 99283